=== PATIENT | male | born 1995 | race Caucasian/White ===

== ENCOUNTER 2020-01-22 14:10 | Emergency (ER) | payer BC ==
[~2020-01-22] VITALS: Ht 190.5 cm; Wt 68.0 kg
[2020-01-22 16:00] VITALS: BP 115/79
== END 2020-01-22 16:41 | disposition home or self-care (01) ==
LOC: ED 14:56
DX: S93.401A Sprain of unspecified ligament of right ankle, initial encounter (principal); S90.31XA Contusion of right foot, initial encounter; J06.9 Acute upper respiratory infection, unspecified; J02.8 Acute pharyngitis due to other specified organisms; R07.9 Chest pain, unspecified; Z20.828 Contact with and (suspected) exposure to other viral communicable diseases; X58.XXXA Exposure to other specified factors, initial encounter; Y93.89 Activity, other specified; Y92.89 Other specified places as the place of occurrence of the external cause; Y99.8 Other external cause status
CPT/HCPCS: 36415; 71045; 87081; 87635; 87880; 99284